=== PATIENT | male | born 1960 | race Caucasian/White ===

== ENCOUNTER 2018-05-24 09:51 | Emergency (ER) | payer OTHER, SELFPAY ==
[2018-05-24 10:00] VITALS: BP 134/76; PULSE 58; RESP 12; TEMP 36.6; O2SAT 100; BMI 25.9
--- NOTE | 2018-05-24 10:04 | DI.RAD.S_ITS ---
PROCEDURE: XR FOOT LT MIN 3V INDICATIONS: 1st/2nd toe injury TECHNIQUE: 3 views of the foot were acquired. COMPARISON: None. FINDINGS: Bones: No fractures or dislocations. No suspicious bony lesions. Soft tissues: No tibiotalar joint effusion. Achilles tendon appears normal. IMPRESSION: No fracture or foreign body seen. Dictated by: Madhu Urias M.D. on 05/24/2018 at 10:31 Approved by: Madhu Urias M.D. on 05/24/2018 at 10:31
--- NOTE | 2018-05-24 10:20 | ED.LOWEXIN ---
HPI - Extremity Injury (Lower) General Chief Complaint: Extremity Injury, Lower Stated Complaint: STUBBED TOE Time Seen by Provider: 05/24/18 09:56 Source: patient Mode of arrival: ambulatory Limitations: no limitations History of Present Illness HPI Narrative: otherwise healthy 58-year-old male here for evaluation of left great toe injury. Patient states that yesterday he tripped and bent his left great toe under on itself. Has had pain since then. No other injuries reported from the event. Related Data Home Medications Medication Instructions Recorded Confirmed No Known Home Medications 05/24/18 05/24/18 Allergies Allergy/AdvReac Type Severity Reaction Status Date / Time No Known Drug Allergies Allergy Verified 05/24/18 10:08 Review of Systems Constitutional Denies fatigue and Denies fever(s) Musculoskeletal Comments: left toe pain Integumentary/Breasts Comments: Bleeding at the base of the nail the left toe Neurologic Comments: no numbness or tingling left toe Endocrine Denies fatigue PFSH Social History Smoking Status: Never smoker Exam Initial Vital Signs Initial Vital Signs: Vital Signs Temperature 97.8 F 05/24/18 10:00 Pulse Rate 58 L 05/24/18 10:00 Respiratory Rate 12 05/24/18 10:00 Blood Pressure 134/76 H 05/24/18 10:00 Pulse Oximetry 100 05/24/18 10:00 Const General: cooperative, healthy appearing, comfortable, well developed and well groomed Resp Effort & Inspection: normal respiratory effort and able to speak in complete sentences Cardio Pulses: dorsalis pedis present on the right Skin Other: dried blood at the base of the nail of the left toe no other lacerations Extrem Other: tenderness to palpation with bending at the IP joint of the left toe Course Orders Ordered: ED Orders 05/24/18 10:04 XR foot LT min 3V Stat Vital Signs - 8 hr 05/24/18 10:00 Temperature 97.8 F Pulse Rate 58 L Respiratory Rate 12 Blood Pressure 134/76 H Pulse Oximetry 100 MDM - Extremity Injury (Lower) Imaging Data left foot x: Radiologist's impression: PROCEDURE: XR FOOT LT MIN 3V INDICATIONS: 1st/2nd toe injury TECHNIQUE: 3 views of the foot were acquired. COMPARISON: None. FINDINGS: Bones: No fractures or dislocations. No suspicious bony lesions. Soft tissues: No tibiotalar joint effusion. Achilles tendon appears normal. IMPRESSION: No fracture or foreign body seen. Dictated by: Madhu Urias M.D. on 05/24/2018 at 10:31 MDM Narrative Medical decision making narrative: no fractures noted on the x-ray. No skin lacerations in need of repair.. Patient Wound was clean. He is neurovascular intact. He was given return precautions. He is placed in a hard sole shoe for comfort. Patient expressed understanding agreement with plan. Discharge Plan Departure Patient Disposition: Home, Self-Care Clinical Impression: Contusion of great toe of left foot Instructions: How To Perform RICE (Rest, Ice, Compress, Elevate) Activity Restrictions/Additional Instructions: you can shower like normal. recommend that you do not soak her toe and anything until the skin has healed. Wear the hard sole shoe as needed. Return to the emergency department for any new or worsening symptoms. Prescriptions: No Action No Known Home Medications RF: 0
[2018-05-24 10:35] VITALS: PULSE 70
[2018-05-24 11:20] VITALS: BP 122/73; PULSE 56
[2018-05-24 11:23] VITALS: BP 122/73; PULSE 54; RESP 12; O2SAT 100
[2018-05-24 11:25] VITALS: BP 122/73; PULSE 72; RESP 14; O2SAT 99
== END 2018-05-24 11:26 | disposition home or self-care (01) ==
PROVIDERS: Emergency Provider Emergency Medicine
DX: S90.112A Contusion of left great toe without damage to nail, initial encounter (principal); W22.8XXA Striking against or struck by other objects, initial encounter
CPT/HCPCS: 29550; 73630; 99283